=== PATIENT | male | born 1985 | race Caucasian/White ===

== ENCOUNTER 2023-06-14 16:22 | Emergency (ER) | payer OTHER, SELFPAY ==
[2023-06-14 16:51] VITALS: BP 154/56; PULSE 55; O2SAT 95; BMI 23.7
--- NOTE | 2023-06-14 16:59 | ED_ITS ---
HPI - Skin/Abscess/Foreign Bdy General Chief complaint: Skin/Abscess/Foreign Body Stated complaint: RASH ON FACE, ? HERPES Time Seen by Provider: 06/14/23 16:48 Source: patient and EMS Mode of arrival: EMS Limitations: no limitations History of Present Illness HPI narrative: Patient comes to the emergency room from [facility]. Over the last 2 days, patient developed as rash on the bottom part of the right eye, across the nose into the other side of the face below the eye. Patient also has honey-crusted lesions around the lip and the chin. Patient states that the rash is not painful. Patient denies any eye pain. Patient states he can move his eyes in all directions without any pain. The rash is not itchy Related Data Previous Rx's Medication Instructions Recorded cephalexin 500 mg capsule 500 mg PO BID #14 caps 06/14/23 doxycycline hyclate 100 mg capsule 100 mg PO DAILY #14 caps 06/14/23 mupirocin 2 % topical ointment 1 appl topical TID #22 grams 06/14/23 Allergies Allergy/AdvReac Type Severity Reaction Status Date / Time No Known Allergies Allergy Verified 06/14/23 16:57 Review of Systems Review of Systems: Constitutional : No Weight loss, No Fever, No Chills, No Night Sweats, No Fatigue, No Malaise ENT/Mouth : No Hearing loss, No Ear Pain, No Nasal Congestion, No Sinus Pain, No Hoarseness, No sore throat, No Rhinorrhea, No Swallowing Difficulty Eyes: No Eye Pain, No Swelling, No Redness, No Foreign Body, No Discharge, No Vision Changes Cardiovascular : No Chest Pain, No SOB, No Dyspnea on Exertion, No Orthopnea, No Edema, No Palpitations Respiratory : No Cough, No Sputum, No Wheezing, No Smoke Exposure, No Dyspnea Gastrointestinal : No Nausea, No Vomiting, No Diarrhea, No Constipation, No abdominal Pain, No Hematochezia, No Melena Genitourinary : no irregular bleeding, No Dysuria, No Urinary Frequency, No Hematuria, No Urinary Incontinence, No Urgency, No Flank Pain, No Urinary Flow Changes, No Hesitancy Musculoskeletal : No joint pain, No Myalgias, No Joint Swelling Skin : Facial rash below the right eye extending across the nose to the left side below the left eye, similar crusted lesions under the lip on the chin Neuro : No Weakness, No Numbness, No Paresthesias, No Loss of Consciousness, No Dizziness, No Headache Psych : No Anxiety/Panic, No Depression, No SI/HI/AH/VH, No Social Issues, Heme/Lymph: No Bruising, No Bleeding,No Lymphadenopathy Endocrine : No Polyuria, No Polydipsia, No Temperature Intolerance [facility] Social History Social History Alcohol intake: former Smoked in Last 30 Days: No Use of substances other than those prescribed or required for medical reasons: Yes Physical Exam Vital Signs: Vital Signs: BMI result Body Mass Index 23.7 Const: Other: Appearance: Alert. Oriented X3. No acute distress. Eyes: Pupils equal, round and reactive to light. Ocular eye movements intact and painless, right eye fluorescein stain test negative for dendrites or any lesions. No pain to palpation over the rash, no vesicles present. ENT: Pharynx normal. Neck: Normal inspection. Neck supple. No lymph nodes noted. No crepitus CVS: Normal heart rate and rhythm. Pulses normal. Normal S1 and S2 Respiratory: No respiratory distress. Breath sounds normal. No Wheezing. No rales Abdomen: Soft and nontender. No rigidity. No distention. Skin: Skin warm and dry. Normal skin color. Normal skin turgor. Extremities: No lower extremity edema. No Lacerations. No Rash Neuro: Oriented X 3. No motor deficit. No sensory deficit. Moving all extremities. No slurred speech. CN 2 through 12 grossly intact Psych: calm, cooperative, normal affect Medical Decision Making Medical Decision Making MDM Narrative: -patient has a known painful crusty rash under the left eye going across the nasal bridge into the left side below the left eye. Patient states that he has no facial pain -patient's ocular eye movements intact and painless -patient has same kind of rash under the lower lip in the chin -patient likely has a staph infection, impetigo. Patient was given the 1st dose of antibiotics, p.o. cephalexin and doxycycline. -patient was not here for suspicion of shingles. Shari, the rash is painless, nonvesicular, crusty, passes the midline and in different spots on the face Differential Diagnosis Differential Diagnoses: The differential diagnosis associated with the presentation includes (Impetigo, staph infection, shingles, eczema, erysipelas) Discharge Plan Discharge Clinical Impression: Impetigo Patient Disposition: Home, Self-Care Instructions: Impetigo (ED) Additional Instructions: Please follow-up with your primary care physician tomorrow. If you have any worsening or new symptoms, please return to the emergency room or call 911 Prescriptions: New cephalexin 500 mg capsule 500 mg PO BID Qty: 14 0RF doxycycline hyclate 100 mg capsule 100 mg PO DAILY Qty: 14 0RF mupirocin 2 % ointment 1 appl topical TID Qty: 22 0RF
[2023-06-14] MEDS: Fluorescein Sodium STRIP 1 STRIP EYE-BOTH (17:00)
[2023-06-14] MEDS: Doxycycline Monohydrate 100 MG CAPSULE PO (17:35)
[2023-06-14] MEDS: cephALEXin 500 MG CAPSULE PO (17:36)
== END 2023-06-14 19:21 | disposition home or self-care (01) ==
LOC: HO.ED 18:04
PROVIDERS: Emergency Provider Emergency Medicine
DX: L01.00 Impetigo, unspecified (principal)
CPT/HCPCS: 99283; 99284